=== PATIENT | male | born 2000 | race Caucasian/White ===

== ENCOUNTER 2022-06-21 03:14 | Emergency (ER) | payer BC ==
[~2022-06-21] VITALS: Ht 172.7 cm; Wt 70.3 kg
[2022-06-21 03:18] VITALS: BP_SYST 147
--- NOTE | 2022-06-21 03:21 | NUR ---
PT HERE ACCOMPANIED BY HIS MOTHER C/O LT UPPER BACK PAIN STARTED AT 1700 YESTERDAY AND PER PT HE WOKE UP AROUND 0230 WITH UINCREASE IN PAIN. DENIES FALL/TRAUMA PMH:DENIES PT AAOX4, NO SOB NOTED AND NAD. PENDING MD PENG
--- NOTE | 2022-06-21 03:23 | NUR ---
PT ASSISTED TO RM 2 AMBULATED WITH STEADY GAIT, REPORT GIVEN TO TRI BANUELOS
--- NOTE | 2022-06-21 03:27 | NUR ---
Pt BIB mother from home with c/o sharp upper back pain, non-radiating that started around yesterday and worsened today at 0230 when it woke him up from sleep. A&O X4, ambulatory, and following commands. VSS. Safety precautions in place and connected to monitor.
--- NOTE | 2022-06-21 03:40 | NUR ---
Dr. Mclaughlin at bedside with patient for evaluation.
[2022-06-21] MEDS ORDERED: IBUP-1969 PO (03:49)
[2022-06-21] MEDS ORDERED: METH-634 PO (03:49)
[2022-06-21 03:57] VITALS: BP_SYST 147
--- NOTE | 2022-06-21 03:57 | NUR ---
Patient given written and verbal discharge instructions and verbalizes understanding. ER Dr. Mclaughlin discussed with patient the results and treatment provided. Patient in stable condition. ID arm band removed. Rx of ibuprofen and robaxin given. Patient educated on pain management and to follow up with PMD. Pain Scale 0. Opportunity for questions provided and answered. Medication side effect fact sheet provided.
== END 2022-06-21 03:57 | disposition home or self-care (01) ==
LOC: SED 03:14
DX: M62.830 Muscle spasm of back (principal); M54.6 Pain in thoracic spine; M25.512 Pain in left shoulder; Z79.899 Other long term (current) drug therapy
CPT/HCPCS: 99283